=== PATIENT | female | born 1965 | race Caucasian/White ===

== ENCOUNTER → 2020-11-08 | Outpatient (CLI) | payer OTHER ==
[~2020-11-08] MED LIST: AMLODIPINE BESYL5 MG PO; CYCLOBENZAPRINE10 MG PO; FENOFIBRATE134 MG PO; FISH OIL 1,0001 EAC4 PO; GABAPENTIN800 MG PO; GLIMEPIRIDE4 MG PO; LEVOTHYROXINE137 MCG PO; LISINOPRIL10 MG PO; LORATADINE10 MG PO; METFORMIN HCL1000 MG PO; OMEPRAZOLE20 M1 PO; ROPINIROLE HCL2 MG PO; TRAZODONE HCL50 MG PO; WIXELA 250-501 EACH INH; ZOCOR40 MG PO
== END ==
LOC: EXRD 09:25
DX: M51.16 Intervertebral disc disorders with radiculopathy, lumbar region (principal); M81.0 Age-related osteoporosis without current pathological fracture; M51.27 Other intervertebral disc displacement, lumbosacral region; M48.061 Spinal stenosis, lumbar region without neurogenic claudication; M48.07 Spinal stenosis, lumbosacral region
CPT/HCPCS: 72148; 77080

== ENCOUNTER → 2021-10-19 | Outpatient (CLI) | payer OTHER | LOC: KOH-I 09:42 | DX: J01.81 Other acute recurrent sinusitis (principal); J32.0 Chronic maxillary sinusitis | CPT/HCPCS: 70486 ==